=== PATIENT | female | born 1945 | race Caucasian/White ===

== ENCOUNTER 2019-12-28 11:05 | Day surgery (SDC) ==
--- NOTE | 2019-12-20 11:25 | EKG Report ---
Test Performed on : 12/20/2019 11:13:07 AM Test Reason : pat Blood Pressure : / mmHG Vent. Rate : 092 BPM Atrial Rate : 092 BPM P-R Int : 214 ms QRS Dur : 126 ms QT Int : 382 ms P-R-T Axes : 073 -54 059 degrees QTc Int : 472 ms Sinus rhythm. with 1st degree AV block. Left axis deviation Right bundle branch block Abnormal ECG No previous ECGs available Confirmed by Elmo Graff MD ([id number]) on 12/20/2019 7:47:56 PM
[2019-12-20 11:53] LABS: BASO# 0.02 X1000 (0.0-0.2); BASO% 0.2 % (0.0-0.8); EOS# 0.06 X1000 (0.0-0.7); EOS% 0.6 % (0.0-10.0); HEMATOCRIT 38.3 % (37.0-47.0); HEMOGLOBIN 12.6 g/dL (12.0-16.0); IMM GRAN# 0.02 X1000 (0.0-0.04); IMM GRAN% 0.2 % (0.0-0.5); LYMPH# 1.63 X1000 (1.2-3.4); LYMPH% 16.2 % (20.5-51.1); MCH 28.2 PG (27-31); MCHC 32.9 g/dL (33-37); MCV 85.7 FL (81-99); MONO# 0.64 X1000 (0.11-0.59); MONO% 6.4 % (1.7-9.3); MPV 9.1 FL (7.4-10.4); NEUT# 7.68 X1000 (1.4-6.5); NEUT% 76.4 % (42.2-75.2); PLT 393 X1000 (130-400); RBC 4.47 XMIL (4.2-5.4); RDW 14.1 % (11.5-14.5); WBC 10.05 X1000 (4.8-10.8)
[2019-12-20 12:50] LABS: ESTIMATED GFR > 60
[2019-12-20 12:53] LABS: AGAP 16; BUN 16 mg/dL (8-22); CHLORIDE 84 mmol/L (98-107); COSMO 258; CREATININE 0.7 mg/dL (0.5-0.9); GLUCOSE 186 mg/dL (70-104); POTASSIUM 4.3 mmol/L (3.5-5.1); SODIUM 125 mmol/L (136-145); TCO2 25 mmol/L (25-35)
--- NOTE | 2019-12-27 09:10 | HISTORY AND PHYSICAL ---
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 She has been managed with pessaries during that time. She was initially referred to me by Dr. Brandie Joshua from the [facility]. The patient's procidentia has worsened, and we have had to change to a Gellhorn pessary. When she was last evaluated in November, she was found to have an erosion in the posterior compartment that was not improving and so the decision was made to leave the uterus out to allow for healing with topical therapy. The patient was having worsening symptoms with the procidentia and having increasing issues with pain, bowel and bladder dysfunction so she was scheduled for surgical intervention. However, because of the COVID-19 virus, the surgery was canceled. The patient is in significant pain, and she and both of her daughters have requested proceeding on with surgical intervention in an emergency situation. The risks and benefits of surgery were explained. I have discussed the procedure with Anesthesia, and they agree to the semi emergent need for the procedure. She is admitted at this time for LeFort colpocleisis, perineorrhaphy, and mid urethral sling. The risks and benefits were discussed at length. She understands and is wishing to proceed. PAST MEDICAL HISTORY: Positive for type 2 diabetes, hypertension, hypercholesterolemia, gout, and the significant pelvic organ prolapse. PAST SURGICAL HISTORY: Positive for bilateral cataract surgery. She is noted to be a para 2, 0-0- 2. ALLERGIES: None. CURRENT MEDICATIONS: 1. Janumet 50-1000. 2. Glimepiride 4. 3. Losartan potassium-hydrochlorothiazide 100-25. 4. Simvastatin 10. 5. Allopurinol 300. 6. Alendronate 70. FAMILY HISTORY: Noncontributory. SOCIAL HISTORY: Negative for tobacco, ETOH or drugs. REVIEW OF SYSTEMS: Negative except as noted above. PHYSICAL EXAMINATION: GENERAL: BMI is noted to be 21. HEENT: Normocephalic, atraumatic. PERRLA. EOMI. No thyromegaly. CV: Regular rate and rhythm without murmur, gallop, or rub. PULMONARY: Clear to auscultation and percussion. ABDOMEN: Soft. : Granulation tissue that has been present on the right side despite several attempts of therapy with topical therapy and silver nitrate. NEUROLOGIC: Afocal. EXTREMITIES: Without clubbing, cyanosis, or edema. ASSESSMENT AND PLAN: The patient is scheduled for LeFort colpocleisis with midurethral sling and perineorrhaphy. The risks and benefits have been discussed at length. The emergent nature declared because of her worsening pain, and the family understands the risks involved due to the COVID-19 virus. cc: Matias Ruiz MD
[~2019-12-28 11:05] MED LIST: DIPRIVAN 1% ONE
--- NOTE | 2019-12-28 11:28 | H&P REVIEW ---
H&P Update H&P Review: H&P was reviewed and patient was examined, No change has occurred in the patient's condition
[2019-12-28] MEDS ORDERED: KEFZOL 1 GM/D5W 2 GM/100 ML IVPB ONE (11:34)
[2019-12-28] MEDS ORDERED: LR 1,000 ML ONE ×2 (11:34→15:12)
[2019-12-28 12:27] LABS: ESTIMATED GFR > 60
[2019-12-28 12:29] LABS: AGAP 13; BUN 10 mg/dL (8-22); CALCIUM 9.8 mg/dL (8.8-10.2); CHLORIDE 85 mmol/L (98-107); COSMO 246; CREATININE 0.6 mg/dL (0.5-0.9); GLUCOSE 179 mg/dL (70-104); POTASSIUM 4.4 mmol/L (3.5-5.1); TCO2 22 mmol/L (25-35)
[2019-12-28 12:31] LABS: SODIUM 120 mmol/L (136-145)
[2019-12-28] MEDS ORDERED: SODIUM CHLORIDE 0.9% ONE (12:43)
[2019-12-28] MEDS ORDERED: D10W 500 ML ONE (12:43)
[2019-12-28] MEDS ORDERED: SENSORCAINE 0.5%-EPI 1:200,000 ONE (12:43)
[2019-12-28] MEDS ORDERED: TORADOL ONE (13:40)
[2019-12-28] MEDS ORDERED: ZOFRAN ONE (13:40)
[2019-12-28] MEDS ORDERED: LASIX ONE (14:23)
[2019-12-28 15:25] LABS: URINE SOURCE CATH
--- NOTE | 2019-12-28 16:01 | OPERATIVE NOTE ---
PROCEDURE DATE: 12/28/2019 PREOPERATIVE DIAGNOSIS: Procidentia. POSTOPERATIVE DIAGNOSIS: Procidentia. PROCEDURES PERFORMED: 1. LeFort colpocleisis. 2. Fractional dilation and curettage with frozen section. 3. Perineorrhaphy. 4. Mid urethral sling with Obtryx. SURGEON: Dr. Salvador Ruiz. ANESTHESIA: General. ESTIMATED BLOOD LOSS: 150 mL. HISTORY: The patient is a 74-year-old female who we have been managing for the last several years with pessary because of her significant pelvic organ prolapse. The patient has been struggling with a continuous posterior compartment erosion from use of the pessary over the last year or two and finally we had to leave the pessary out despite the advanced-stage prolapse. She was scheduled for surgical correction at her desire and the COVID-19 viral issue caused the surgery to be canceled. The patient was having a significant amount of pain and a significant amount of urinary retention, so the patient's daughters called stating that they felt like the patient would either need to be admitted to the hospital or something else would need to be performed, and the decision was made to proceed with surgical intervention declaring this an emergency. So after discussion with Anesthesia as well as with the family at length, decision was made to call this an emergent procedure and to proceed on with surgical correction. OPERATIVE FINDINGS: The patient was found to have procidentia with the cervix resting at +2 with no Valsalva and the patient in the supine position. OPERATIVE PROCEDURE: The patient is taken to the operating room and placed in supine position. After adequate general anesthesia was obtained, she was placed in the [facility] stirrups and her vagina and perineum were prepped and draped in the usual fashion. After completion of this, the cervix was grasped with Allis clamps and Hegar dilators were utilized to dilate the cervix to 9-10. A Telfa pad was then placed on the perineal body below the cervix, and sharp curettage was performed on the endometrial cavity throughout. Upon doing this, the specimen was sent for frozen section and we continued on with the assumption that this would be a negative biopsy. Approximately 20 to 30 minutes later the frozen section did return as being atrophic endometrium with no other abnormalities. In the meantime, we had continued on. We initially did a hydrodissection in the anterior compartment and then did a split-thickness dissection after the hydro had been performed anteriorly. We then went to the posterior compartment doing the same thing. The dissection was performed throughout with 0.25% Marcaine with epinephrine diluted 50% with normal saline. We injected approximately 40 mL anteriorly and approximately 40 mL posteriorly as well. After completion of this, we then used our scalpel to delineate large rectangles initially in the anterior compartment. The vaginal tissue was noted to be extraordinarily thin and Allis clamps were causing the tissue to tear with minimal to no tension whatsoever. We actually ended up removing the anterior vaginal mucosa in a very piecemeal fashion. When we went to the posterior compartment, we had the same exact tissue, especially around the more cephalad portion in the posterior compartment where the large erosion was. We were able to get all the posterior area removed also in a piecemeal fashion after the same hydrodissection with an attempt to do a split- thickness dissection. However, again the vaginal tissue was extraordinarily thin. We then turned our attention towards the obliteration of the vaginal vault. We did this by using 0 Vicryl ligatures from the anterior to the posterior lip of the cervix imbricating the cervix. We left a small 1 cm tunnel on each side of vaginal tissue and we continued with imbrication using 0 Vicryl ligature for the most cephalad portion and then beginning our tunnels also. We then changed to 2.0 Vicryl ligature using interrupted sutures to close anterior to posterior until we had total obliteration of the entire vagina. This brought the vaginal tissue down close to the urethrovesical neck and the distal 2 cm at the introitus. We then closed the vaginal mucosa anterior to posterior with interrupted [id number] sutures with 0 Vicryl ligature. We then turned our attention towards performing the perineorrhaphy. We did a hydrodissection with 0.25% Marcaine with epinephrine diluted 50% with normal saline both on the right and left hand sides. We then made a david-shaped incision and did a dissection out for liberation of the remaining portion of vaginal mucosa from the distal levators. We then plicated the distal levators and attached these as well to the perineum so that we would not have a separation in this area, and this obliterated another 2 to 3 cm of the genital hiatus. We then closed the remaining incision with 2.0 Vicryl ligature as if it was a second-degree episiotomy. We turned our attention towards placement of the sling. The urethra was grasped proximally and distally and approximately 8 mL of the same local anesthetic was then injected in a similar fashion as the other anatomic sites. A sagittal incision was made. Metzenbaum scissors were utilized to dissect up to the ischial pubic ramus on each side. Based on the bony landmarks of the ramus as well as the insertion of the adductor longus, a stab incision was initially made on the left hand side. The halo device was introduced through the obturator canal to the horizontal resaw operator's finger which directed the needle out. The mesh was attached to it and was retracted back through the skin. This was performed on the contralateral side in a similar fashion. Bladder was drained of all fluids and all urine and then a cystoscope was introduced. The bladder was refilled with approximately 250 mL of D10 and both ureters were effluxing urine. There was no evidence of any abnormality within the bladder. There was no evidence of any mesh or suture material. Cystoscope was removed, and a Shante clamp was placed in the mid urethral position. The tape was brought up with a Shante clamp. The blue tag was brought up with a Shante clamp. There was no tension on the mesh whatsoever. The blue tag was excised and the sheaths were easily removed. There was no tension on the mesh. Blackwood catheter was placed and was easily placed without any difficulty. The mid urethral incision was closed with a running 2.0 Vicryl ligature. Sponge count, instrument count, and needle counts were correct x3 at this point. Blackwood catheter was draining well. Rectal examination was performed and there was no evidence of any abnormalities. The patient was taken out of the [facility], awakened, and taken to recovery room with vital signs stable. cc: Matias Ruiz MD
[2019-12-28] MEDS ORDERED: NORCO-5 PO PRN (16:16)
[2019-12-28] MEDS ORDERED: ZOFRAN ODT PO PRN (16:16)
[2019-12-28 17:04] LABS: BILIRUBIN URINE NEGATIVE (NEGATIVE); BLOOD URINE SMALL (NEGATIVE); COLOR STRAW; GLUCOSE URINE TRACE mg/dL (NEGATIVE); KETONE URINE NEGATIVE (NEGATIVE); LEUKOCYTES URINE NEGATIVE (NEGATIVE); NITRITE URINE NEGATIVE (NEGATIVE); PROTEIN URINE NEGATIVE (NEGATIVE); SP GRAVITY URINE 1.005; TURBIDITY URINE CLEAR (CLEAR); UR EPITHELIAL CELLS <10 /HPF (<10); URINE BACTERIA NEGATIVE /HPF; URINE RBC <10 /HPF (<10); URINE WBC <10 /HPF (<10); UROBILINOGEN URINE NORMAL (NORMAL)
[2019-12-28] MEDS: LR 1,000 ML IV SCH ×2 (17:55→22:04)
[2019-12-28] MEDS: TORADOL IV SCH ×2 (18:00→21:59)
[2019-12-28] MEDS: HYDROCHLOROTHIAZIDE PO SCH (18:00)
[2019-12-28] MEDS ORDERED: SINGULAIR PO SCH (21:00)
[2019-12-28] MEDS ORDERED: ZYLOPRIM PO SCH (21:00)
[2019-12-28] MEDS ORDERED: ZOCOR PO SCH (21:00)
[2019-12-28] MEDS: AMARYL PO SCH (21:58)
[2019-12-28] MEDS: COLACE PO SCH (21:58)
[2019-12-28] MEDS: PERIDEX MT SCH (21:59)
[2019-12-28] MEDS: GLUCOPHAGE PO SCH (21:59)
[2019-12-28] MEDS: JANUVIA PO SCH (21:59)
[2019-12-29] MEDS: TORADOL IV SCH ×4 (04:17→12:43)
--- NOTE | 2019-12-29 07:13 | DISCHARGE SUMMARY ---
ADMISSION DATE: 12/28/2019 DISCHARGE DATE: 12/29/2019 PRINCIPAL DIAGNOSIS: Pelvic organ prolapse, procidentia. HISTORY: The patient is a 74-year-old female who has been managed conservatively with pessaries over the last year or 2 because a significant advanced stage prolapse; however, we had to stopped pessary management over the last 3 to 4 weeks because of significant posterior compartment erosions and the patient and daughters called asking to please have her surgery rescheduled emergently because of the amount of discomfort that the patient was in. HOSPITAL COURSE: The patient underwent a LeFort colpocleisis with perineorrhaphy and mid urethral sling. Blood loss at the time surgery was approximately 150 mL and her tissue was noted to be extraordinarily thin. Her postoperative course has been uncomplicated. This morning she seems slightly confused; however, I think this is her baseline. Mini-mental status exam was performed and she was able to pass all tests. We discussed her postoperative care and we discussed her postoperative pain management and prescriptions. The patient was instructed in regular diet, decreased activity and to return to see us in 3 to 4 weeks. DISCHARGE MEDICATIONS: [place] and [place]. cc: Matias Ruiz MD
[2019-12-29] MEDS ORDERED: SYNTHROID PO SCH (09:00)
[2019-12-29] MEDS: AMARYL PO SCH (10:05)
[2019-12-29] MEDS: JANUVIA PO SCH (10:05)
[2019-12-29] MEDS: GLUCOPHAGE PO SCH (10:05)
[2019-12-29] MEDS: COLACE PO SCH (10:05)
[2019-12-29] MEDS: PERIDEX MT SCH (10:06)
[2019-12-29] MEDS ORDERED: FOSAMAX PO SCH (11:30)
[2019-12-29] MEDS ORDERED: COZAAR PO SCH (12:00)
[2019-12-29] MEDS: LR 1,000 ML IV SCH (12:34)
[2019-12-29 12:35] VITALS: BP 163/72
[2019-12-29] MEDS: HYDROCHLOROTHIAZIDE PO SCH (12:43)
== END 2019-12-29 16:13 | disposition other institution (70) ==
LOC: 4N 11:05 → OR 11:05
PROVIDERS: ATTEND Obstetrics & Gynecology